=== PATIENT | male | born 1965 | race Caucasian/White ===

== ENCOUNTER 2016-10-17 17:39 | Emergency (ER) | payer OTHER ==
[2016-10-17 20:40] LABS: HEMOGLOBIN 15.8 gm/dl (14.0-17.5); RED BLOOD COUNT 5.02 M/UL (4.20-5.50); WHITE BLOOD COUNT 9.9 K/UL (4.5-11.0)
[2017-04-26] MEDS ORDERED: LIPITOR40 MG PO (12:06)
[2017-04-26] MEDS ORDERED: METOPROLOL TART25 MG PO (12:07)
[2017-04-26] MEDS ORDERED: ASPIR 8181 MG PO (12:08)
[2017-04-26] MEDS ORDERED: NORVASC 5 MG TAB5 MG PO (12:08)
[2017-04-26] MEDS ORDERED: NEXIUM40 MG PO (12:09)
[2017-04-26] MEDS ORDERED: HYDROCODON-ACE1 EAC4 PO (15:11)
[2017-04-26] MEDS ORDERED: LEVAQUIN500 MG PO (15:11)
== END 2016-10-17 23:48 | disposition home or self-care (01) ==
LOC: ER1 17:39
PROVIDERS: Family Medicine
DX: R09.1 Pleurisy (principal); F17.290 Nicotine dependence, other tobacco product, uncomplicated
CPT/HCPCS: 36415; 71020; 80053; 82550; 82553; 83874; 84484; 85025; 85379; 93005; 99285

== ENCOUNTER → 2016-11-12 | Outpatient (CLI) | payer OTHER ==
[~2016-11-12] MED LIST: ASPIR 8181 MG PO; HYDROCODON-ACE1 EAC4 PO; LEVAQUIN500 MG PO; LIPITOR40 MG PO; METOPROLOL TART25 MG PO; NEXIUM40 MG PO; NORVASC 5 MG TAB5 MG PO
== END ==
LOC: LAB 08:14
PROVIDERS: Nurse Practitioner
DX: E78.5 Hyperlipidemia, unspecified (principal)
CPT/HCPCS: 36415; 80053; 80061; 84443

== ENCOUNTER → 2016-11-16 | Outpatient (CLI) | payer OTHER | LOC: HEART 5 11-15 08:30 | DX: R07.9 Chest pain, unspecified (principal); R51 Headache; I25.10 Atherosclerotic heart disease of native coronary artery without angina pectoris | CPT/HCPCS: 78452; 93306; A9502; J2785 ==

== ENCOUNTER 2016-12-06 14:04 | Emergency (ER) | payer OTHER ==
[2016-12-06 15:47] LABS: HEMOGLOBIN 14.5 gm/dl (14.0-17.5); RED BLOOD COUNT 4.64 M/UL (4.20-5.50); WHITE BLOOD COUNT 8.3 K/UL (4.5-11.0)
[2017-04-26] MEDS ORDERED: LIPITOR40 MG PO (12:06)
[2017-04-26] MEDS ORDERED: METOPROLOL TART25 MG PO (12:07)
[2017-04-26] MEDS ORDERED: ASPIR 8181 MG PO (12:08)
[2017-04-26] MEDS ORDERED: NORVASC 5 MG TAB5 MG PO (12:08)
[2017-04-26] MEDS ORDERED: NEXIUM40 MG PO (12:09)
[2017-04-26] MEDS ORDERED: LEVAQUIN500 MG PO (15:11)
[2017-04-26] MEDS ORDERED: HYDROCODON-ACE1 EAC4 PO (15:11)
== END 2016-12-06 20:10 | disposition home or self-care (01) ==
LOC: ER1 14:04
PROVIDERS: Specialist/Technologist Athletic Trainer
DX: R07.9 Chest pain, unspecified (principal); R07.2 Precordial pain; E78.5 Hyperlipidemia, unspecified; I11.9 Hypertensive heart disease without heart failure; F17.200 Nicotine dependence, unspecified, uncomplicated; Z88.5 Allergy status to narcotic agent; Z79.82 Long term (current) use of aspirin; Z79.899 Other long term (current) drug therapy; Z95.0 Presence of cardiac pacemaker
CPT/HCPCS: 71010; 80053; 82550; 82553; 83874; 84484; 85025; 93005; 96374; 99285; J1885

== ENCOUNTER → 2016-12-16 | Outpatient (CLI) | payer OTHER | LOC: CT 09:00 | DX: I65.23 Occlusion and stenosis of bilateral carotid arteries (principal) ==

== ENCOUNTER → 2017-01-07 | Outpatient (CLI) | payer OTHER ==
[2017-01-07 16:39] LABS: HEMOGLOBIN 14.1 gm/dl (14.0-17.5); RED BLOOD COUNT 4.51 M/UL (4.20-5.50); WHITE BLOOD COUNT 8.7 K/UL (4.5-11.0)
== END ==
LOC: US 16:00
PROVIDERS: Internal Medicine Nephrology
DX: N18.3 Chronic kidney disease, stage 3 (moderate) (principal)
CPT/HCPCS: 36415; 76775; 80053; 81001; 82043; 82570; 83970; 84156; 85027

== ENCOUNTER → 2017-04-25 | Outpatient (CLI) | payer OTHER ==
[2017-04-25 07:56] LABS: HEMOGLOBIN 14.9 gm/dl (14.0-17.5); RED BLOOD COUNT 4.74 M/UL (4.20-5.50); WHITE BLOOD COUNT 8.4 K/UL (4.5-11.0)
== END ==
LOC: LAB 06:23
PROVIDERS: Internal Medicine Cardiovascular Disease
DX: Z45.010 Encounter for checking and testing of cardiac pacemaker pulse generator [battery] (principal); I49.5 Sick sinus syndrome; R00.0 Tachycardia, unspecified; R47.1 Dysarthria and anarthria; I25.10 Atherosclerotic heart disease of native coronary artery without angina pectoris
CPT/HCPCS: 36415; 71020; 80048; 85025

== ENCOUNTER 2020-09-15 21:58 | Emergency (ER) | payer OTHER ==
[~2020-09-15 21:58] MED LIST changes: +PLAVIX 75 MG TA75 MG PO; +TYLENOL 500 MG500 MG PO
[2020-09-15 22:33] LABS: HEMOGLOBIN 16.4 gm/dl (14.0-17.5); RED BLOOD COUNT 5.03 M/UL (4.20-5.50); WHITE BLOOD COUNT 10.4 K/UL (4.5-11.0)
[2020-09-15 23:05] LABS: BUN/CREATININE RATIO 10 (0-10)
== END 2020-09-16 03:21 | disposition home or self-care (01) ==
LOC: ER1 21:58
PROVIDERS: Physician Assistant
DX: F41.9 Anxiety disorder, unspecified (principal); R07.89 Other chest pain; I12.9 Hypertensive chronic kidney disease with stage 1 through stage 4 chronic kidney disease, or unspecified chronic kidney disease; N18.9 Chronic kidney disease, unspecified; I25.10 Atherosclerotic heart disease of native coronary artery without angina pectoris; F17.290 Nicotine dependence, other tobacco product, uncomplicated; Z88.5 Allergy status to narcotic agent; Z20.822 Contact with and (suspected) exposure to COVID-19
CPT/HCPCS: 36415; 71045; 80053; 82550; 82553; 83874; 84484; 85025; 93005; 99285; U0002

== ENCOUNTER 2021-01-12 06:22 | Emergency (ER) | payer OTHER ==
[2021-01-12 08:49] LABS: HEMOGLOBIN 16.5 gm/dl (14.0-17.5); RED BLOOD COUNT 5.08 M/UL (4.20-5.50); WHITE BLOOD COUNT 9.6 K/UL (4.5-11.0)
== END 2021-01-12 11:23 | disposition home or self-care (01) ==
LOC: ER1 06:22
PROVIDERS: Physician Assistant
DX: R51.9 Headache, unspecified (principal); I12.9 Hypertensive chronic kidney disease with stage 1 through stage 4 chronic kidney disease, or unspecified chronic kidney disease; E78.5 Hyperlipidemia, unspecified; N18.9 Chronic kidney disease, unspecified; F17.290 Nicotine dependence, other tobacco product, uncomplicated
CPT/HCPCS: 70450; 80048; 85025; 85652; 86140; 96374; 96375; 99284; J1200; J2765; J7030

== ENCOUNTER → 2021-01-26 | Outpatient (CLI) | payer OTHER | LOC: US 15:15 | DX: N18.30 Chronic kidney disease, stage 3 unspecified (principal) | CPT/HCPCS: 76775 ==

== ENCOUNTER → 2021-03-05 | Outpatient (CLI) | payer OTHER | LOC: HEART 5 09:55 | DX: R06.02 Shortness of breath (principal); I51.7 Cardiomegaly; Z95.0 Presence of cardiac pacemaker | CPT/HCPCS: 93306 ==

== ENCOUNTER 2021-04-16 22:24 | Emergency (ER) | payer OTHER ==
[2021-04-16 23:19] LABS: HEMOGLOBIN 15.6 gm/dl (14.0-17.5); RED BLOOD COUNT 4.93 M/UL (4.20-5.50); WHITE BLOOD COUNT 9.1 K/UL (4.5-11.0)
[2021-04-16 23:59] LABS: BUN/CREATININE RATIO 10 (0-10)
== END 2021-04-17 05:00 | disposition home or self-care (01) ==
LOC: ER1 22:24
PROVIDERS: Physician Assistant
DX: R00.2 Palpitations (principal); I25.10 Atherosclerotic heart disease of native coronary artery without angina pectoris; I10 Essential (primary) hypertension; Z88.5 Allergy status to narcotic agent; F17.290 Nicotine dependence, other tobacco product, uncomplicated
CPT/HCPCS: 71045; 80053; 82550; 82553; 83735; 83874; 84439; 84443; 84484; 85025; 93005; 99285

== ENCOUNTER → 2022-01-21 | Outpatient (CLI) | payer OTHER ==
[2022-01-22 12:14] LABS: COMPLEMENT C3, SERUM 141 mg/dL (82-167); COMPLEMENT C4, SERUM 15 mg/dL (12-38)
[2022-01-22 17:12] LABS: A/G RATIO 1.3 (0.7-1.7); ALBUMIN 3.9 g/dL (2.9-4.4); ALPHA-1-GLOBULIN 0.2 g/dL (0.0-0.4); ALPHA-2-GLOBULIN 0.9 g/dL (0.4-1.0); GLOBULIN, TOTAL 3.2 g/dL (2.2-3.9); IMMUNOGLOBULIN A, QN, SERUM 273 mg/dL (90-386); IMMUNOGLOBULIN G, QN, SERUM 1035 mg/dL (603-1613); IMMUNOGLOBULIN M, QN, SERUM 35 mg/dL (20-172); M-SPIKE Not Observed g/dL (Not Observed); PROTEIN, TOTAL, SERUM 7.1 g/dL (6.0-8.5)
[2022-01-22 19:12] LABS: ATYPICAL PANCA <1:20 titer (Neg:<1:20); CYTOPLASMIC (C-ANCA) <1:20 titer (Neg:<1:20); PERINUCLEAR (P-ANCA) <1:20 titer (Neg:<1:20)
== END ==
LOC: LAB 06:28
PROVIDERS: Internal Medicine Nephrology
DX: I12.9 Hypertensive chronic kidney disease with stage 1 through stage 4 chronic kidney disease, or unspecified chronic kidney disease (principal); N18.30 Chronic kidney disease, stage 3 unspecified; I25.10 Atherosclerotic heart disease of native coronary artery without angina pectoris; E78.5 Hyperlipidemia, unspecified; R00.2 Palpitations; I49.1 Atrial premature depolarization
CPT/HCPCS: 36415; 80061; 80076; 82570; 82784; 84155; 84156; 84165; 86038; 86160; 86256; 86334